=== PATIENT | male | born 1980 | race Caucasian/White ===

== ENCOUNTER 2022-04-17 08:56 | Emergency (ER) | payer OTHER ==
[~2022-04-17] VITALS: Ht 175.3 cm; Wt 108.9 kg
== END 2022-04-17 11:21 | disposition home or self-care (01) ==
LOC: ER 08:56
DX: S63.617A Unspecified sprain of left little finger, initial encounter (principal); X50.1XXA Overexertion from prolonged static or awkward postures, initial encounter
CPT/HCPCS: 73130